=== PATIENT | female | born 1980 | race Caucasian/White ===

== ENCOUNTER 2020-03-14 08:13 | Emergency (ER) | payer OTHER, SELFPAY ==
[2020-03-14 08:26] VITALS: BP 136/87; PULSE 104; RESP 16; TEMP 37.2; O2SAT 100
--- NOTE | 2020-03-14 08:34 | ED.SKABFB ---
HPI - Skin/Abscess/Foreign Bdy General Chief complaint: Skin/Abscess/Foreign Body Stated complaint: poison ludwin Time Seen by Provider: 03/14/20 08:34 Source: patient and RN notes reviewed History of Present Illness HPI narrative: Patient is a 39-year-old female presents the urgent care with complaints of poison ludwin to bilateral forearms, right ankle, left cheek and swelling to bilateral eyes. Patient states that she was pulling down a vine on Tuesday and by Tuesday she had the areas of irritation and swelling. Patient states that the eye swelling started last night and worsened this morning. Patient denies any known injury or trauma to the eyes. Denies any changes in vision. States that she had a virtual appointment with her doctor on Tuesday and has been taking 40 of prednisone for the last 2 days. Patient did take the medication this morning prior to her arrival. Patient is also been using Benadryl, calamine and hydrocortisone without much improvement. No other acute complaints. No acute distress noted. Patient had a plan of care. Related Data Home Medications Medication Instructions Recorded Confirmed prednisone 40 mg PO BID 03/14/20 03/14/20 Allergies Allergy/AdvReac Type Severity Reaction Status Date / Time moxifloxacin Allergy Unknown Swelling Verified 03/14/20 08:46 Review of Systems Review of Systems: Narrative: CONSTITUTIONAL: Denies fever, chills, or sweats. EYES: Denies visual changes, redness, or discharge. Reports of swelling to the right eye ENT: Denies rhinorrhea, congestion, sore throat, or otalgia. CARDIOVASCULAR: Denies chest pain, palpitations, or edema. RESPIRATORY: Denies cough or dyspnea. GASTROINTESTINAL: Denies abdominal pain, nausea, vomiting, or diarrhea. GENITOURINARY: Denies dysuria or hematuria. SKIN: Reports of itchy poison ludwin to bilateral forearms, right ankle, left cheek MUSCULOSKELETAL: Denies back pain, joint pain, or myalgia. NEUROLOGIC: Denies headache, numbness, or weakness. All other systems reviewed are negative, except as documented in HPI. [facility] Family History Family History (Updated 06/13/14 @ 07:13 by DOCTOR UNKNOWN) Grandparent Carcinoma of colon Family history of coronary artery disease Social History Social History Smoking status: Never smoker Second hand tobacco smoke exposure: No Alcohol intake: never Comments At the time of my signature, I reviewed and agree with the nursing past medical, surgical, social, and family history. There is no relevant family history pertinent to the patient complaint. Exam Narrative: Exam Narrative: GENERAL: This is a well-nourished, well-developed patient, in no apparent distress. HEAD: normocephalic, atraumatic. EYES: PERRL. Sclera clear/white. Vision is grossly intact. Moderate edema and mild erythema to the lower right eyelid with mild edema to the upper right eyelid; mild edema to left lower eyelid EARS: External ears normal NOSE: External nose normal with no obvious nasal discharge THROAT: Mucous membranes moist, posterior pharynx clear. NECK: Neck supple, non-tender without lymphadenopathy, masses or thyromegaly. CARDIOVASCULAR: Regular rate and rhythm without murmurs, gallops, or rubs. RESPIRATORY: Clear to auscultation. Breath sounds equal bilaterally. No wheezes, rales, or rhonchi. SKIN: Fluid-filled bullous dermatitis noted to bilateral forearms, right ankle, and left cheek. Warm, intact with good texture and turgor. NEURO: awake, alert, and oriented to person, place and time. There were no obvious focal neurologic abnormalities. EXTREMITIES: No clubbing, cyanosis, or edema. Course Vital Signs Vital signs: Vital Signs Temperature 99 F 03/14/20 08:26 Pulse Rate 104 H 03/14/20 08:26 Respiratory Rate 16 03/14/20 08:26 Blood Pressure 136/87 03/14/20 08:26 Pulse Oximetry 100 03/14/20 08:26 Temperature 99 F 03/14/20 08:26 Pulse Rate 104 H 03/14/20 08:26 Respiratory Rate 16 0
[2020-03-14] MEDS: methylPREDNISolone ACETATE 80 MG/ML VIAL IM (08:51)
== END 2020-03-14 09:11 | disposition home or self-care (01) ==
PROVIDERS: Emergency Provider Nurse Practitioner Family
DX: L23.7 Allergic contact dermatitis due to plants, except food (principal); L03.213 Periorbital cellulitis
CPT/HCPCS: 96372; 99213; G0463; J1040

== ENCOUNTER 2022-07-18 14:25 | Emergency (ER) | payer OTHER, SELFPAY ==
--- NOTE | ~2022-07-18 | XR_ITS ---
EXAM: XR toe 4th LT min 2V DATE: 07/18/2022 14:57 HISTORY: STUBBING INJURY/BRUISING,GEN PAIN TO PHALANGIES . COMPARISON: None available. FINDINGS: Normal mineralization. Oblique nondisplaced fracture at the medial corner of the proximal aspect of the left fourth middle phalange. No lytic or blastic lesion. Joint spaces are maintained. N o erosion or periosteal change. Soft tissues within normal limits. IMPRESSION: Oblique, nondisplaced fracture at the medial corner of the proximal aspect of the left fo urth middle phalange. Reviewed, dictated and finalized at location K. IMPRESSION: Oblique, nondisplaced fracture at the medial corner of the proximal aspect of the left fourth middle phalange.
--- NOTE | 2022-07-18 14:31 | ED.LOWEXIN ---
HPI - Extremity Injury (Lower) General Chief Complaint: Extremity Injury, Lower Stated Complaint: Left foot toe injury Time Seen by Provider: 07/18/22 14:31 Source: patient and RN notes reviewed History of Present Illness HPI Narrative: Patient is a 42-year-old female who presents the urgent care with complaints of left foot pain. Patient states that she was barefoot yesterday and slammed her foot into a door jam. Patient is complaining of pain to the fourth left toe and all the way up the side of the foot. Patient states she took ibuprofen this morning. No other acute complaints. No acute distress noted. Patient aware of the plan of care. Some parts of this dictation were generated by voice recognition software and may contain typographical and/or grammatical inaccuracies. Related Data Home Medications Medication Instructions Recorded Confirmed No Home Medications 07/18/22 07/18/22 Allergies Allergy/AdvReac Type Severity Reaction Status Date / Time moxifloxacin Allergy Severe Swelling Verified 07/18/22 14:48 of Lip/Tongue/Throat Review of Systems Review of Systems: CONSTITUTIONAL: Denies fever, chills, or sweats. EYES: Denies visual changes, redness, or discharge. ENT: Denies rhinorrhea, congestion, sore throat, or otalgia. CARDIOVASCULAR: Denies chest pain, palpitations, or edema. RESPIRATORY: Denies cough or dyspnea. GASTROINTESTINAL: Denies abdominal pain, nausea, vomiting, or diarrhea. GENITOURINARY: Denies dysuria or hematuria. SKIN: Denies rash or itching. MUSCULOSKELETAL: Reports of left fourth toe pain and left foot pain NEUROLOGIC: Denies headache, numbness, or weakness. All other systems reviewed are negative, except as documented in HPI. [facility] Family History Family History (Updated 06/13/14 @ 07:13 by DOCTOR UNKNOWN) Grandparent Carcinoma of colon Family history of coronary artery disease Social History Social History Smoking status: Never smoker Second hand tobacco smoke exposure: No Alcohol intake: never Comments At the time of my signature, I reviewed and agree with the nursing past medical, surgical, social, and family history. There is no relevant family history pertinent to the patient complaint. Exam Narrative: GENERAL: This is a well-nourished, well-developed patient, in no apparent distress. HEAD: normocephalic, atraumatic. EYES: PERRL. Sclera clear/white. Vision is grossly intact. EARS: External ears normal NOSE: External nose normal with no obvious nasal discharge, nares without redness, no rhinorrhea. THROAT: Mucous membranes moist NECK: Neck supple SKIN: warm, intact with no suspicious lesions or rash, good texture and turgor. NEURO: awake, alert, and oriented to person, place and time. There were no obvious focal neurologic abnormalities. EXTREMITIES: Mild exacerbated pain on flexion of the left lower extremity as well as weightbearing. Moderate ecchymosis and mild edema noted to the fourth digit on the left foot. Mild tenderness to the lateral aspect of the left foot. Positive strong left pedal pulse with capillary refill less than 2 seconds. Course Course Level of Care: Express Care Visit Vital Signs Vital signs: Vital Signs Temperature 98.3 F 07/18/22 14:33 Pulse Rate 76 07/18/22 14:33 Respiratory Rate 20 07/18/22 14:33 Blood Pressure 139/92 H 07/18/22 14:33 Pulse Oximetry 100 07/18/22 14:33 Oxygen Delivery Room Air 07/18/22 14:33 Temperature 98.3 F 07/18/22 14:33 Pulse Rate 76 07/18/22 14:33 Respiratory Rate 20 07/18/22 14:33 Blood Pressure 139/92 H 07/18/22 14:33 Pulse Oximetry 100 07/18/22 14:33 Oxygen Delivery Room Air 07/18/22 14:33 Reviewed-patient is informed that they may have pre-hypertension or hypertension based on a blood pressure reading in the department. I recommend the patient call the primary care provider listed on their discharge instructions or a physician of their choice this
[2022-07-18 14:33] VITALS: BP 139/92; PULSE 76; RESP 20; TEMP 36.8; O2SAT 100
== END 2022-07-18 15:22 | disposition home or self-care (01) ==
PROVIDERS: Emergency Provider Nurse Practitioner Family
DX: S92.525A Nondisplaced fracture of middle phalanx of left lesser toe(s), initial encounter for closed fracture (principal); W22.09XA Striking against other stationary object, initial encounter
CPT/HCPCS: 73660; 99214; G0463

== ENCOUNTER 2023-03-17 11:42 | Emergency (ER) | payer OTHER, SELFPAY ==
--- NOTE | ~2023-03-17 | XR_ITS ---
EXAMINATION: XR foot RT min 3V DATE: 03/17/2023 12:02 INDICATION: Right heel pain. TECHNIQUE: 4 views of right foot were obtained. COMPARISON: None. FINDINGS: Bone alignment is normal. No fracture. There is mild osteoarthritis of talonavicular joint and first metatarsophalangeal joint. There are enthesophytes at the posterior and plantar aspects of calcaneal tuberosity. IMPRESSION: 1. Mild polyarticular osteoarthritis. Reviewed, dictated and finalized at location A.
--- NOTE | 2023-03-17 11:49 | ED.LOWEXIN ---
HPI - Extremity Injury (Lower) General Chief Complaint: Extremity Injury, Lower Stated Complaint: Right Foot Pain Source: patient and RN notes reviewed History of Present Illness HPI Narrative: 42 yo F presents to urgent care with complaints of right posterior foot pain x 3 weeks. Pt denies any specific injury. Pt states her pain is significantly worse in the morning and worsens when she applies pressure to her foot. Pt has rolled her foot on a tennis ball, taken ibuprofen, and wrapped her foot without relief. Pt has purchased plantar fascitis inserts for her shoes without relief. Denies any fevers, chills, numbness, or tingling. Related Data Allergies Allergy/AdvReac Type Severity Reaction Status Date / Time moxifloxacin Allergy Severe Swelling Verified 03/17/23 11:51 of Lip/Tongue/Throat Review of Systems Review of Systems: CONSTITUTIONAL: Denies fever, chills, or sweats. EYES: Denies visual changes, redness, or discharge. ENT: Denies otalgia and sore throat CARDIOVASCULAR: Denies chest pain, palpitations, or edema. RESPIRATORY: Denies cough or dyspnea. GASTROINTESTINAL: Denies abdominal pain, nausea, vomiting, or diarrhea. GENITOURINARY: Denies dysuria or hematuria. SKIN: Denies rash or itching. MUSCULOSKELETAL: Right foot pain NEUROLOGIC: Denies headache, numbness, or weakness. Pertinent positives per HPI. [facility] Family History Family History (Updated 06/13/14 @ 07:13 by DOCTOR UNKNOWN) Grandparent Carcinoma of colon Family history of coronary artery disease Social History Social History Smoking status: Never smoker Second hand tobacco smoke exposure: No Alcohol intake: never Comments At the time of my signature, I reviewed and agree with the nursing past medical, surgical, social, and family history. There is no relevant family history pertinent to the patient complaint. Exam Narrative: GENERAL: This is a well-nourished, well-developed patient, in no apparent distress. HEAD: normocephalic, atraumatic. EYES: Sclera clear/white. Vision is grossly intact. EARS: External ears normal, auditory canals clear and without drainage. Hearing grossly intact. NOSE: External nose normal with no obvious nasal discharge, nares without redness, no rhinorrhea. THROAT: Mucous membranes moist, posterior pharynx clear. NECK: Neck supple, non-tender without lymphadenopathy, masses or thyromegaly. CARDIOVASCULAR: Regular rate RESPIRATORY: No respiratory distress SKIN: warm, intact with no suspicious lesions or rash, good texture and turgor. NEURO: awake, alert, and oriented to person, place and time. There were no obvious focal neurologic abnormalities. EXTREMITIES: No clubbing, cyanosis, or edema. No joint tenderness, effusion, or edema noted. BACK: Nontender without deformity or crepitus. No flank tenderness. Course Course Level of Care: Express Care Visit Vital Signs Vital signs: Vital Signs Temperature 98.8 F 03/17/23 11:53 Pulse Rate 93 03/17/23 11:53 Respiratory Rate 16 03/17/23 11:53 Blood Pressure 147/93 H 03/17/23 11:53 Pulse Oximetry 100 03/17/23 11:53 Oxygen Delivery Room Air 03/17/23 11:53 Temperature 98.8 F 03/17/23 11:53 Pulse Rate 93 03/17/23 11:53 Respiratory Rate 16 03/17/23 11:53 Blood Pressure 147/93 H 03/17/23 11:53 Pulse Oximetry 100 03/17/23 11:53 Oxygen Delivery Room Air 03/17/23 11:53 Reviewed MDM - Extremity Injury (Lower) MDM Narrative Medical decision making narrative: May take 600 mg of ibuprofen every 6 hours if needed with food. Roll foot on frozen tennis ball. Take steroid pack as directed. FOllow up with oracle database consultant if symptoms persist. Differential Diagnosis Differential diagnosis: Likely other Imaging Data Radiologist's impression: Express [facility] [address] [place] [address] XRay Report Signed Patient: Nat Morgan : 1980 MR#: [id number]
[2023-03-17 11:53] VITALS: BP 147/93; PULSE 93; RESP 16; TEMP 37.1; O2SAT 100
== END 2023-03-17 12:32 | disposition home or self-care (01) ==
PROVIDERS: Emergency Provider Nurse Practitioner Family
DX: M72.2 Plantar fascial fibromatosis (principal)
CPT/HCPCS: 73630; 99213; G0463

== ENCOUNTER 2023-11-25 16:49 | Emergency (ER) | payer OTHER, SELFPAY ==
[2023-11-25 17:02] VITALS: BP 142/97; PULSE 71; RESP 16; TEMP 36.9; O2SAT 99
--- NOTE | 2023-11-25 17:25 | ED.URI ---
HPI - URI/Sore Throat General Chief Complaint: Upper Respiratory Infection Stated Complaint: Cough/Chest Congestion/Drainage History of Present Illness HPI Narrative: 43-year-old female presenting for complaint of nasal congestion and drainage this week which developed into cough with wheezing. also feels like she cannot take a full deep breath. Denies shortness of breath, dizziness, nausea vomiting diarrhea, fevers or chills. She is taking Mucinex and Zyrtec Related Data Allergies Allergy/AdvReac Type Severity Reaction Status Date / Time moxifloxacin Allergy Severe Swelling Verified 03/17/23 11:51 of Lip/Tongue/Throat Review of Systems Review of Systems: CONSTITUTIONAL: Denies body aches, fever, chills, or sweats. EYES: Denies visual changes, redness, or discharge. ENT: reports rhinorrhea, congestion, denies otalgia. CARDIOVASCULAR: Denies chest pain, palpitations, or edema. RESPIRATORY: reports cough Denies dyspnea. GASTROINTESTINAL: Denies abdominal pain, nausea, vomiting, or diarrhea. SKIN: Denies rash, itching, or wounds. MUSCULOSKELETAL: Denies back pain, joint pain, or myalgia. NEUROLOGIC: Denies headache [facility] Family History Family History Grandparent Carcinoma of colon Family history of coronary artery disease Social History Social History Smoking status: Never smoker Second hand tobacco smoke exposure: No Alcohol intake: never Exam Narrative: GENERAL: well-appearing, no acute distress. EYES: conjunctivae clear ENT: Mucous membranes moist. TM pearly avalos with normal light reflex bilaterally; no tragal tenderness. Oropharynx erythematous without lesions. No drooling, no hoarseness, no trismus, uvula midline. No tripod positioning, hot potato voice, or soft palate swelling. NECK: Supple. No lymphadenopathy CHEST: Clear to auscultation, breath sounds equal. No respiratory distress, speaks in full sentences. HEART: Regular rate and rhythm. No murmur heard. SKIN: Warm, dry, no rash. NEURO: Alert and oriented x3. Course Course Emergency Course: Patient is aware of diagnosis, understands and agrees to treatment plan. Anticipatory guidance given. Patient agrees to follow-up as directed and is aware of reasons to seek care at the emergency department. Portions of this record may have been created with voice recognition software Level of Care: Express Care Visit Vital Signs Vital signs: Vital Signs Temperature 98.4 F 11/25/23 17:02 Pulse Rate 71 11/25/23 17:02 Respiratory Rate 16 11/25/23 17:02 Blood Pressure 142/97 H 11/25/23 17:02 Pulse Oximetry 99 11/25/23 17:02 Oxygen Delivery Room Air 11/25/23 17:02 Temperature 98.4 F 11/25/23 17:02 Pulse Rate 71 11/25/23 17:02 Respiratory Rate 16 11/25/23 17:02 Blood Pressure 142/97 H 11/25/23 17:02 Pulse Oximetry 99 11/25/23 17:02 Oxygen Delivery Room Air 11/25/23 17:02 MDM - URI/Sore Throat MDM Narrative Medical decision making narrative: discussed physical exam findings consistent with bronchitis. Reviewed prescriptions. Advise supportive treatments. Patient is appropriate for outpatient treatment and follow-up. Differential Diagnosis Differential diagnosis: Likely upper respiratory infection, viral infection and pharyngitis Discharge Plan Discharge Clinical Impression: Bronchitis Patient Disposition: Home, Self-Care Condition: Stable Instructions: Antibiotic Form, Acute Bronchitis (ED) Additional Instructions: Take medication as directed Recommend Flonase spray and Zyrtec (or Claritin/Jennifer) over the counter Cough syrup may cause drowsiness; avoid driving or take it at night time. Tylenol 1000mg every 8 hours as needed for pain Symptomatic treatment includes: rest, fluids, and increase humidity of the air at home. Follow up with your brice
== END 2023-11-25 17:41 | disposition home or self-care (01) ==
PROVIDERS: Emergency Provider Nurse Practitioner Family
DX: J40 Bronchitis, not specified as acute or chronic (principal)
CPT/HCPCS: 99213; G0463